=== PATIENT | male | born 1940 | race Caucasian/White ===

== ENCOUNTER 2017-12-19 10:48 | Emergency (ER) | payer SELFPAY ==
[~2017-12-19] VITALS: Ht 172.7 cm; Wt 64.5 kg
[2017-12-19 10:53] VITALS: Ht 172.7 cm; Wt 64.5 kg
[2017-12-19] MEDS ORDERED: GEMFIBROZIL600 MG PO (10:57)
[2017-12-19] MEDS ORDERED: ZOLOFT50 MG PO (10:58)
[2017-12-19] MEDS ORDERED: COUMADIN5 MG PO (10:59)
[2017-12-19] MEDS ORDERED: COUMADIN2.5 MG PO (11:00)
[2017-12-19] MEDS ORDERED: ZOFRAN ODT4 MG/UDTAB PO (11:01)
[2017-12-19] MEDS ORDERED: LIPITOR20 MG PO (11:01)
[2017-12-19] MEDS ORDERED: FUROSEMIDE20 MG PO (11:02)
[2017-12-19 14:47] VITALS: BP 143/72
== END 2017-12-19 14:50 | disposition home or self-care (01) ==
LOC: D.ER 10:48
DX: M25.562 Pain in left knee (principal)